=== PATIENT | male | born 1940 | race Caucasian/White ===

== ENCOUNTER 2016-03-23 07:56 | Observation (INO) | payer MEDICARE ==
[~2016-03-23] VITALS: Ht 179.1 cm; Wt 118.0 kg
[2016-03-23] VITALS (8 sets, daily range): BP systolic 130–151; BP diastolic 47–68; PULSE 65–81; RESP 10–20; O2SAT 95–99
[~2016-03-23 07:56] MED LIST: ACET-171 PO; ALBU8.5H2 INHALATION; AMLO5TAB2 PO; ASPI-973 PO; ATOR20TA65 PO; CARV6.252 PO; CLOP75TA3 PO; DOXA2TAB52 PO; FLUT16SP NS; FUR20 PO; HYDR-3939 PO; INSU100I13 SUBQ; INSU200I SQ; IPRA3AMP IH; ISOS30TA4 PO; LOSA50TA3 PO; Lactated Ringer's 1,000 ML IV ONE; OXYB5TAB PO
[2016-03-23] MEDS ORDERED: Lactated Ringer's 1,000 ML IV SCH (09:11)
[2016-03-23] MEDS ORDERED: Lactated Ringer's 500 ML IV PRN (09:11)
[2016-03-23] MEDS ORDERED: hydrALAZINE 20 mg/mL Inj IVPUSH PRN (09:15)
[2016-03-23] MEDS ORDERED: fentaNYL-PF 50 mCg/mL 2 mL Inj IVPUSH PRN (09:15)
[2016-03-23] MEDS ORDERED: MetoCLOpramide 5 mg/mL 2 mL Inj IVPUSH PRN (09:15)
[2016-03-23] MEDS ORDERED: EPHEDrine Sulfate 50 mg/mL Inj IVPUSH PRN (09:15)
[2016-03-23] MEDS ORDERED: Phenylephrine 10,000 mCg/mL Inj IVPUSH PRN (09:15)
[2016-03-23] MEDS ORDERED: Ondansetron 2 mg/mL 2 mL Inj IVPUSH PRN ×2 (09:15→14:45)
[2016-03-23] MEDS ORDERED: HYDROmorphone 1 mg/mL Inj IVPUSH PRN (09:15)
[2016-03-23] MEDS ORDERED: Atropine 0.4 mg/mL Inj IVPUSH PRN (09:15)
[2016-03-23] MEDS ORDERED: Labetalol 5 mg/mL 4 mL Inj IV PRN (09:15)
[2016-03-23] MEDS ORDERED: Glucagon 1 mg/mL Inj ONE ×2 (11:00→13:15)
[2016-03-23] MEDS ORDERED: Neostigmine 1 mg/mL 5 mL Inj ONE (11:00)
[2016-03-23] MEDS ORDERED: Phenylephrine/NS-PF 100 mCg/mL 5 mL Syringe IVPUSH ONE (11:00)
[2016-03-23] MEDS ORDERED: Ondansetron 2 mg/mL 2 mL Inj ONE (11:00)
[2016-03-23] MEDS ORDERED: Propofol 10,000 mCg/mL 20 mL Inj ONE (11:00)
[2016-03-23] MEDS ORDERED: EPHEDrine/NS 5 mg/mL 5 mL Syringe ONE (11:00)
[2016-03-23] MEDS ORDERED: Glycopyrrolate 0.2 mg/mL 5 mL Inj ONE (11:00)
[2016-03-23] MEDS ORDERED: Rocuronium 10 mg/mL 5 mL Inj ONE (11:00)
[2016-03-23] MEDS ORDERED: Succinylcholine Chloride 20 mg/mL 5 mL Inj ONE (11:00)
[2016-03-23] MEDS ORDERED: MetoCLOpramide 5 mg/mL 2 mL Inj ONE (11:00)
[2016-03-23] MEDS ORDERED: Insulin Human REGular-Omnicell 100 Unit/mL ONE (11:21)
[2016-03-23] MEDS ORDERED: fentaNYL-PF 50 mCg/mL 2 mL Inj ONE (13:15)
--- NOTE | 2016-03-23 14:19 | DRSVH ---
PROCEDURE: X-RAY E.R.C. BILIARY DUCTS ([id number]) INDICATIONS: STONE REMOVAL TECHNIQUE: Fluoroscopic spot films were acquired by the gastroenterology service during ERCP procedu re. COMPARISON: [facility], US, US ABDOMEN, 12/24/2015, 13:30. FINDINGS: Partial opacification of the extrahepatic bile duct which is prominent and there is a rough ly 1 cm rounded filling defect seen involving the distal common bile duct. Sweeping balloon catheter is noted. IMPRESSION: Prominence of the extra hepatic bile duct with intraluminal filling defect likely related to a retained stone or possible gas bubble. Correlate with real-time exam. Dictated by: Alex THAYER Interpreted: Ivanna Reddy MD on 03/23/2016 at 14:18 Transcribed by: CRISS on 03/23/2016 at 14:19 Approved by: Ivanna Reddy MD, PhD on 03/23/2016 at 16:30
[2016-03-23] MEDS ORDERED: Polyethylene Glycol (PEG) 17 Gm Powder PO PRN (14:45)
[2016-03-23] MEDS ORDERED: Alum-Mag Hydrox-Simeth 30 mL Suspension PO PRN (14:45)
--- NOTE | 2016-03-23 15:00 | NUR ---
To [facility] after ERCP Report received from charge nurse. ERCP procedure after stent removed BP 151/68, pulse 73. afebrile. alert and awake, watching TV. denies pain or discomfort. no nausea or vomiting. call light with in reach for safety.
[2016-03-23] MEDS ORDERED: Albuterol-Ipratropium 3 mL Inhalation Solution INHALATION PRN (15:10)
[2016-03-23 16:26] LABS: BASOPHILS % (AUTO) 0.2 % (0-3); EOSINOPHILS % (AUTO) 0.3 % (0-5); MONOCYTES % (AUTO) 4.8 % (4-12); Mean Corpuscular Hemoglobin 27.6 pg (27.0-35.0); Mean Corpuscular Volume 86.1 fL (81-100); NEUTROPHILS % (AUTO) 85.9 % (40-74); Platelet Count 217 bil/L (150-400)
--- NOTE | 2016-03-23 17:54 | PCM.HPANE ---
Patient Data Surgeon Admitting Provider: Attending Provider:Karri Mcgregor MD Primary Care Physician:Andrew Pope MD Other Provider:Shannon Sanchezingham Anesthesia Reason for Visit Cholelithiasis Ht/WT & BMI Body Mass Index Allergies Coded Allergies: lisinopril (Unverified Adverse Reaction, Severe, COUGH, 11/15/15) Past Anesthesia History Anesthesia History: Denies:: Abnormal Airway, Anesthesia Reactions, Difficult Intubation, Fam Anesthesia Reaction, Fam Malignant Hypertherm, Malignant Hyperthermia Diabetes History Hx Diabetes?: Yes Type of Diabetes: Type II Glycemic Control: Insulin Dependent Medications Blood Thinner: Aspirin, Plavix Active Scripts Amlodipine 5 Mg Tjnzhq69 Mg PO DAILY #30 TABLET Prov:Israel Valenzuela MD 12/26/15 Hydralazine 25 Mg Jjlckj51 Mg PO TID #30 TABLET Prov:Zachariah Streeter 11/24/15 Furosemide 20 Mg Tab20 Mg PO 0830,1630 #14 TAB Prov:Zachariah Streeter 11/24/15 Losartan Potassium (Cozaar)50 Mg Kpuukk93 Mg PO BID #14 TABLET Prov:Zachariah Streeter 11/24/15 Carvedilol 6.25 Mg Tablet6.25 Mg PO BID #60 TABLET Ref 0 Prov:Mike Lemon DO 11/17/15 Clopidogrel Bisulfate (Plavix)75 Mg Bqpklq48 Mg PO DAILY 30 Days Ref 3 Prov:Bar Galdamez MD 09/03/15 Reported Medications Isosorbide MN ER 30 Mg Tab.er.24h30 Mg PO DAILY 03/22/16 Fluticasone Propionate (Fluticasone Propionate Nasal)16 Gm [place].susp2 [place] NS DAILY #16 GM Ref 0 03/22/16 Albuterol HFA (Proair HFA)8.5 Gm Hfa.aer.ad2 Puffs INHALATION Q4H PRN For Shortness of Breath #1 INHALER 03/22/16 Insulin Lispro (Humalog Kwikpen)200 Unit/Ml (3 Ml) Insuln.pen1-8 Unit SQ TIDAC 141-199 - 1 unit 200-249 - 3 units 250-299 - 5 units 300-349 - 7 units >349 - 8 units 11/18/15 Acetaminophen 500 Mg Tablet1,000 Mg PO Q6H PRN For Pain 11/18/15 Aspirin 81 Mg Zbibbi85 Mg PO DAILY Ref 0 09/02/15 Oxybutynin Chloride ER 5 Mg Tab.er.245 Mg PO DAILY Ref 0 08/19/15 Ipratropium/Albuterol Sulfate (Iprat-Albut 0.5-3(2.5) mg/3 mL Inhalant Soln)3 Ml Ampul.neb3 Ml IH QID PRN For Wheezing Ref 0 08/19/15 Doxazosin (Cardura)2 Mg Tablet4 Mg PO DAILY Ref 0 03/17/15 Atorvastatin Calcium 20 Mg Yvpuid01 Mg PO HS #90 12/01/14 Insulin Glargine (Lantus U100 Solostar Insulin Pen)100 Unit/1 Ml Insuln.pen15 Unit SUBQ BIDAC before breakfast and before supper 09/08/14 History History of ENT Problems?: No HEENT History: Positive for:: Cataracts (right eye) Denies:: Abnormal Airway Difficult Intubation Dysphagia Hearing Problem Sinus Problem Hx of Heart Problems?: Yes Cardiovascular History: Positive for:: Cardiac Surgery (08/2014 HEART CATH X2 W/ STENTING,) Edema Heart Murmur Hypertension Thrombophlebitis (HX OF DVT in R thigh) Denies:: AICD Chest Pain Congestive Heart Failure (pt is unsure) Irregular Heartbeat Pacemaker Valvular Heart Disease Hx of Respiratory Problem?: No Respiratory History: Positive for:: COPD Dyspnea Hemoptysis (has happened in past with really severe cough) Use of C-PAP Machine (ALVARO+ SLEEP STUDY 03/2010 NON-COMPLIANT W/ CPAP) Denies:: Asthma Chest Surgery Emphysema Pneumonia Tuberculosis Hx Neurologic Problems?: Yes Neurological History: Denies:: Alzheimer's Disease CVA Dementia Dizziness Headaches Parkinson's Disease Seizures Hx of GI Problems?: No Gastrointestinal History: Denies:: Diverticulitis Gastroesphageal Reflux Gastrointestinal Bleeding Heartburn Hepatitis Hiatal Hernia Rectal Bleeding Hx of Problems?: Yes Genitourinary History: Positive for:: Kidney Stones Urinary Tract Infection Denies:: HX of Hemodialysis HX of Peritoneal Dialysis: No Male Hx: Positive for:: Prostate Problems (BPH) Denies:: Scrotal Mass Testicular Surgery Skin History: Positive for:: History Skin Disorders? (wound on LLE, pt does not know how it happened or how long ago it happened.) Denies:: Pressure Ulcers (LT FOOT/HEEL WOUND=CURRENT PROBLEM FOOT IN CAST ) Hx Musculoskeletal Problems?: Yes Musculoskeletal History: Denies:: Back Injury Joint Replacement Musculoskeletal Trauma Hx of Psycho/Social Problems?: Yes Psycho Social History: Positive for:: Anxiety Hx Depression Denies:: Bipolar Disorder Suicide Attempt Hx Surgeries?: Yes (on feet and gallbladder) Hx Any Other Health Problems?: Yes Other History: Positive for:: Hospitalization (NH, surgeries) Denies:: Cancer Endocrine Disease Thyroid Disease History Blood Transfusions: Denies:: Blood Transfuse Reaction Blood Transfusions Hx Diabetes: Yes Hx Alcohol Use: NoHx Substance Use: No Smoking Status: Former Smoker Have You Smoked inLast 12 mo: No ("quit 50 years ago") Stop/Bang Risk Assessment Category Category 1A: Patient has history of documented sleep apnea, and HAS NOT received any narcotic, sedative or anesthesia administration during this stay. Category 1B: Patient has history of documented sleep apnea, and HAS received any narcotic , sedative or anesthesia administration during this stay Category 2: Patient has SUSPECTED Obstructive Sleep Apnea, and HAS received any narcotic , sedative or anesthesia administration during this stay. Category 3: Patient has SUSPECTED Obstructive Sleep Apnea and HAS NOT received narcotic, sedative or anesthesia administration during this stay. Category 4: Outpatient in Procedural Areas with known sleep apnea or who screen positive for High Risk via the STOP/BANG questionnaire. Exam Exam General Appearance: Alert, Oriented X3, Cooperative, No Acute Distress HEENT/AIRWAY: MP 2 Lungs: Clear to Auscultation, Normal Air Movement Heart: Exam Unremarkable, Regular Rate/Rhythm, No Murmurs/Rubs/Gallops Plan Impression Patient chart reviewed, patient interviewed and anesthestic plan with risks, benefits, and alternatives discussed, and informed consent obtained. NPO Status: 12/24 3660 ASA Physical Status: ASA3 Severe Disease Anesthetic Support Modalities: Lithia Scope Anesthetic Plan: GA Bene/Risks/Altern/Consents: Yes HP Complete Prior to Induction: Yes Marlon Flanagan MD Mar 23, 2016 07:36
--- NOTE | 2016-03-23 17:54 | PCM.ANEP2 ---
Post Anesthesia Evaluation ASA/CMS Post Anesthesia VS in Patient's Normal Range?: Yes Resp Stable; Airway Patent?: Yes CV Function & Hydration Stable: Yes Mental Status Recovered?: Yes Pain control Satisfactory?: Yes N/V Control Satisfactory?: Yes Marlon Flanagan MD Mar 23, 2016 17:54
--- NOTE | 2016-03-23 17:54 | PCM.ANEP1 ---
Post Anesthesia Phase 1 PACU Phase 1 Assessment Vital Signs Vital Signs Date Time Temp Pulse Resp B/P Pulse Ox O2 Delivery O2 Flow Rate FiO2 03/23/16 14:56 36.4 73 14 151/68 03/23/16 12:10 68 13 135/47 95 Room Air 2 03/23/16 10:55 70 14 130/48 95 Nasal Cannula 2 03/23/16 10:50 70 12 140/50 95 Nasal Cannula 2 03/23/16 10:42 36.6 74 10 142/58 99 Simple Mask 10 Anesthetic Administered: GA Level of Alertness: Awake, talking ECHE[place]RIA's with Equal Strength: Yes Pain: No Nausea or Vomiting: No Oxygen Delivery: Room Air Lungs: Clear to Auscultation, Normal Air Movement Dermatome Level: Full Sensation Marlon Flanagan MD Mar 23, 2016 17:54
[2016-03-23] MEDS ORDERED: Glucose 40% Oral Gel 15 Gm Tube PO PRN (18:00)
--- NOTE | 2016-03-23 18:19 | NUR ---
Blood sugar Blood sugar before dinner 209. paged doctor and new orders for insulin SS.
[2016-03-23] MEDS: Albuterol 2.5 mg/3 mL Inhalation Solution NEB PRN (18:32)
--- NOTE | 2016-03-23 19:25 | NUR ---
CHELSEA wraps CHELSEA wraps on bilateral lower legs and per patient, " followed by wound doctor" last change on last Sunday per patient and it is changed weekly per patient.
[2016-03-23] MEDS: Insulin LISPRO 300 Unit/3 mL Inj SUBQ SCH (22:25)
[2016-03-23] MEDS: Heparin 5,000 Unit/mL Inj SUBQ SCH (22:35)
--- NOTE | 2016-03-23 22:35 | PCM.HPMED ---
Subjective Date of Service Mar 23, 2016 Primary Provider: Admitting Physician: Karri Mcgregor MD Primary Care Physician: Andrew Pope MD Attending Physician: Karri Mcgregor MD Admit Status: Direct Admit, 23-Hour Observation, Admit to Red Team Chief Complaint: Patient is status post ERCP with stone removal from the common bile duct History of Present Illness: Patient is a pleasant 75-year-old male history of COPD, diabetes, coronary disease, status post laparoscopic cholecystectomy that was performed on 09/02/2015, status post ERCP with choledocholithiasis and biliary stent placement and failed removal of a common bile duct stone on 09/02/2015. Patient was admitted on 12/25/2015 to [facility] for transaminitis. This transaminitis resolved relatively quickly and patient was discharged home to follow-up with gastroenterology. Patient was brought in for elective ERCP today and was found to have a common bile duct stone or stones which were removed(operative report not available) and patient was to be discharged home however he had no way to get home and lives alone. Therefore he was brought in under observation to the hospital service. -Check liver function tests in a.m. -Check CBC and magnesium in a.m. as well Review of Systems: General: Patient is in no apparent distress lying supine in bed. HEENT: Patient has no headache, patient has no diplopia, patient has no changes in vision. Patient has no problems with his ears, nose or throat. Patient has no known dental problems. Patient has no pharyngitis or history of thrush. Neck: Patient has no stiffness in the neck. Patient has no lymphadenopathy. Patient has no other problems with his neck. Pulmonary: Patient has no shortness of breath, no cough, no expectoration of sputum. Patient has no pleurisy. Patient has no chest pain. Patient has no history of asthma or COPD. Cardiovascular: Patient has no chest pain. Patient has no history of heart murmur. Patient has no palpitations. Patient has a history of coronary artery disease and non-ST elevated myocardial infarction Gastrointestinal: Patient has no history of hepatitis A, B or C. Patient has no history of peptic ulcer disease. Patient has no history of gastroesophageal reflux disease. Patient has no history of nausea, vomiting, or diarrhea. Patient has no history of hematemesis, hematochezia, or melena. Patient has no history of colitis. Renal: Patient has no history of kidney disease. No history of kidney stones. Genitourinary: Patient has no history of dysuria, frequency, or incontinence. Patient has no previous history of genitourinary problems. Musculoskeletal: Patient has no history of muscular skeletal problems. Neurologic: Patient has no history of stroke, no history of seizure, no history of TIA. Psychiatric: Patient has no history of psychiatric problems. The remainder of the entire review of systems was reviewed with patient and is as mentioned above otherwise negative. Allergies Coded Allergies: lisinopril (Unverified Adverse Reaction, Severe, COUGH, 11/15/15) Home Medications Amlodipine 5 Mg Rgkgik70 Mg PO DAILY #30 TABLET Prov:Israel Valenzuela MD 12/26/15 Hydralazine 25 Mg Mhghhw39 Mg PO TID #30 TABLET Prov:Zachariah Streeter 11/24/15 Furosemide 20 Mg Tab20 Mg PO 0830,1630 #14 TAB Prov:Zachariah Streeter 11/24/15 Losartan Potassium (Cozaar)50 Mg Hndimp80 Mg PO BID #14 TABLET Prov:Zachariah Streeter 11/24/15 Carvedilol 6.25 Mg Tablet6.25 Mg PO BID #60 TABLET Ref 0 Prov:Mike Lemon DO 11/17/15 Clopidogrel Bisulfate (Plavix)75 Mg Dbszrv05 Mg PO DAILY 30 Days Ref 3 Prov:Bar Galdamez MD 09/03/15 Reported Medications Isosorbide MN ER 30 Mg Tab.er.24h30 Mg PO DAILY 03/22/16 Fluticasone Propionate (Fluticasone Propionate Nasal)16 Gm [place].susp2 [place] NS DAILY #16 GM Ref 0 03/22/16 Albuterol HFA (Proair HFA)8.5 Gm Hfa.aer.ad2 Puffs INHALATION Q4H PRN For Shortness of Breath #1 INHALER 03/22/16 Insulin Lispro (Humalog Kwikpen)200 Unit/Ml (3 Ml) Insuln.pen1-8 Unit SQ TIDAC 141-199 - 1 unit 200-249 - 3 units 250-299 - 5 units 300-349 - 7 units >349 - 8 units 11/18/15 Acetaminophen 500 Mg Tablet1,000 Mg PO Q6H PRN For Pain 11/18/15 Aspirin 81 Mg Wgqrgs22 Mg PO DAILY Ref 0 09/02/15 Oxybutynin Chloride ER 5 Mg Tab.er.245 Mg PO DAILY Ref 0 08/19/15 Ipratropium/Albuterol Sulfate (Iprat-Albut 0.5-3(2.5) mg/3 mL Inhalant Soln)3 Ml Ampul.neb3 Ml IH QID PRN For Wheezing Ref 0 08/19/15 Doxazosin (Cardura)2 Mg Tablet4 Mg PO DAILY Ref 0 03/17/15 Atorvastatin Calcium 20 Mg Mdusxj57 Mg PO HS #90 12/01/14 Insulin Glargine (Lantus U100 Solostar Insulin Pen)100 Unit/1 Ml Insuln.pen15 Unit SUBQ BIDAC before breakfast and before supper PMH NSTEMI with known Coronary disease status post placement of 2 coronary artery stents August 2014 history stents replaced in the left thalamus or posterior circumflex and the proximal RCA. 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 h/o MRSA septicemia (from foot) Obstructive sleep apnea History of lumbar stenosis Hypertension Diabetes mellitus Possible Bladder tumor with elevated PSA(suppose to be scheduled for Cystoscopy and transurethral resection of bladder tumor 11/17 but patient cancelled to ask for second opinion) patient obtain a second opinion from a Dr. Lin at [facility] who thought better to watch these bladder process rather than to surgery. Patient is to follow-up with [facility] for further recommendations. Hyperlipemia Vitamin D deficiency Cognitive impairment Surgical History Left foot partial amputation 2006 Cardiac cath August 2014 (patient has 2 stents in the left dominant circumflex, and a proximal RCA stent) Family History Patient's father of a myocardial infarction at the age of 68. Patient's mother of breast cancer at the age of 65 Patient's brother of prostate cancer Patient sister of a stroke. The patient's uncle had colon cancer There is no other family history of colon cancer There is no family history of inflammatory bowel disease or celiac disease. 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 He then worked to work for the [employer] company. 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 Patient was transferred to [facility] shortly after working for the [employer] company in [place]. The patient has never been and he has no children. He has no girlfriend and he lives by himself at the [facility]. He occasionally plays golf. Exam Vital Signs Vital Sign - Last Date Time Temp Pulse Resp B/P Pulse Ox O2 Delivery O2 Flow Rate FiO2 03/23/16 18:37 65 18 98 Nasal Cannula 2.50 03/23/16 14:56 36.4 151/68 Exam General: Patient is in no apparent distress lying supine in bed. HEENT: Head is atraumatic and normocephalic. There is normal male pattern baldness. Eyes: Pupils are equally round and reactive to light and accommodation. Extraocular muscles are intact. Sclera are white, anicteric. Subconjunctival mucosa is pink. Ears and nose are unremarkable. Oropharynx: There is no mucosal lesions, there is no thrush, there is no pharyngitis. Neck: Is supple, there are no nodes, or masses or tenderness. Chest: Is clear to auscultation and percussion. There are no rales, rhonchi, wheezes or rubs. Heart: Rate, rhythm is regular. There is no murmur, rub or gallop. Abdomen: Good bowel sounds are present. Abdomen is soft, nontender, no organomegaly or masses were appreciated. There is some tympany to percussion. Extremities: Are symmetrical and well perfused. There is no edema, there is no cellulitis, no rash. Neurologic: There are no focal neurological deficits. Cranial nerves II through XII are intact. There are no sensory or motor deficits. Psychiatric: Patients mood is calm and shows no sign of agitation. Genital: Deferred Rectal: Deferred Lab and Diagnostics Result Diagram: 03/23/16 1535 03/23/16 1535 X-Rays, CTs and MRIs PROCEDURE: X-RAY E.R.C. BILIARY DUCTS ([id number]) INDICATIONS: STONE REMOVAL TECHNIQUE: Fluoroscopic spot films were acquired by the gastroenterology service during ERCP procedure. COMPARISON: [facility], US, US ABDOMEN, 12/24/2015, 13:30. FINDINGS: Partial opacification of the extrahepatic bile duct which is prominent and there is a roughly 1 cm rounded filling defect seen involving the distal common bile duct. Sweeping balloon catheter is noted. IMPRESSION: Prominence of the extra hepatic bile duct with intraluminal filling defect likely related to a retained stone or possible gas bubble. Correlate with real-time exam. Dictated by: Alex Peres RRA Interpreted: Ivanna Reddy MD on 03/23/2016 at 14:18 Transcribed by: CRISS on 03/23/2016 at 14:19 Approved by: Ivanna Reddy MD, PhD on 03/23/2016 at 16:30 Cardiac Echo Impressions Echocardiogram Report Name: KALEY JEAN KStudy Date: 11/16/2015 H eight: 72 in Hospital Exam Location: [facility] eight: 261 lb Gender: Male B SA: 2.4 m2 : 1940 Age: 74 yrs B P: 158/81 mmHg Reason For Study: NSTEMI Ordering Physician: [facility]PITAL[facility] Performed By: Melissa Martinez Referring Physician: DR. POPE, DR. Delaney GTZ Interpretation Summary Sinus bradycardia; HR is 55-60 bpm. Wide QRS complexes. Normal LV size; normal wall thickness; there is basal inferior, mid inferior, mid inferolateral and basal inferolateral hypokinesis. EF is 45-50%. state II diastolic dysfunction. Aortic valve leaflets are moderately calcified and thickened. There is aortic sclerosis without stenosis. Compared to prior study 09/09/2015 LV is less dynamic. EF is down from 55-60% to 45-50%. Focal WMA's in PDA distribution are more pronounced. Assessment & Plan Patient is a pleasant 75-year-old male history of COPD, diabetes, coronary disease, status post laparoscopic cholecystectomy that was performed on 09/02/2015, status post ERCP with choledocholithiasis and biliary stent placement and failed removal of a common bile duct stone on 09/02/2015. Patient was admitted on 12/25/2015 to [facility] for transaminitis. This transaminitis resolved relatively quickly and patient was discharged home to follow-up with gastroenterology. Patient was brought in for elective ERCP today and was found to have a common bile duct stone or stones which were removed(operative report not available) and patient was to be discharged home however he had no way to get home and lives alone. Therefore he was brought in under observation to the hospital service. Choledocholithiasis -Status post ERCP and common bile duct stone removal today -Check CBC CMP and magnesium level in a.m. -Monitor closely. Coronary Artery Disease s/p stents - History of drug eluting stents placement to RCA and circumflex (x2 TIA) in 2014, currently off the Plavix - Coreg 6.25 mg bid, Isosorbide 30 mg daily and Atorvastatin Hypertension -We will monitor postprocedure - We will continue Losartan, Amlodipine and Coreg Hyperlipidemia - We will continue continue Atorvastatin 20 mg HS Diabetes type 2 with associated neuropathy, diabetic foot ulcer and nephropathy - Hold outpatient Lantus tonight due to poor by mouth intake - We will implement sliding scale insulin coverage with low correction algorithm with Lispro - Diabetic diet Obstructive sleep apnea - Patient does not have his CPAP machine - Therefore will place on 2 L of O2 per nasal cannula while sleeping with O2 sat monitoring. Disposition. - Patient lives alone without any caregivers. - Plan for discharge in a.m. - Dr. Mcneal will follow in a.m. Pain Evaluation: Adequate Pain Control GI Prophylaxis: Proton Pump Inhibitor VTE Prophylaxis: Sub-Q Heparin (Unfractionated) VTE Mechanical Devices: Intermittant Pneumatic CD Resuscitation Status: CPR: Attempt Resuscitation Celestino Velasquez MD Mar 23, 2016 22:35
[2016-03-24] MEDS: Heparin 5,000 Unit/mL Inj SUBQ SCH ×2 (00:53→08:23)
[2016-03-24] MEDS: Insulin LISPRO 300 Unit/3 mL Inj SUBQ SCH ×3 (01:01→12:00)
[2016-03-24 01:07] VITALS: BP 147/69; PULSE 63; RESP 18; O2SAT 99
[2016-03-24 03:23] VITALS: PULSE 66; RESP 18; O2SAT 99
[2016-03-24] MEDS: Albuterol 2.5 mg/3 mL Inhalation Solution NEB PRN (03:23)
--- NOTE | 2016-03-24 03:53 | NUR ---
Blood Glucose/Insulin Pt HS BG 207. Informed pt of sliding scale coverage of 1 unit. Pt stated, "1 UNIT, THAT WILL DO NOTHING!" Discussed with pt what he would do at home pt stated that he would most likely take 4 units and asked if he would like 4 units. Pt appearing very angry and didn't understand why the MD would only order 1 unit. Explained to pt the algorithm and that it was just a guideline to help with insulin administration. Asked pt again if he would like 1 unit or 4 units. Pt stated "I will take the 1 unit and want you to come check my blood sugar in 2 hours!" Administered 1 unit and rechecked BG @ 0100 with a result of 163. Pt requesting 3 more units of insulin. Administered 3 units per pt request and rechecked 2.5 hours later and BG 123.
[2016-03-24 07:02] LABS: BASOPHILS % (AUTO) 0.2 % (0-3); EOSINOPHILS % (AUTO) 2.2 % (0-5); MONOCYTES % (AUTO) 5.8 % (4-12); Mean Corpuscular Hemoglobin 27.1 pg (27.0-35.0); Mean Corpuscular Volume 86.9 fL (81-100); NEUTROPHILS % (AUTO) 75.8 % (40-74); Platelet Count 201 bil/L (150-400)
[2016-03-24] MEDS ORDERED: Pantoprazole 40 mg ER24 Tablet PO SCH (07:30)
--- NOTE | 2016-03-24 07:38 | ENDO ---
[address] [address] ENDOSCOPY PROCEDURE PATIENT: KALEY JEAN : 1940 MR#: [id number] ADMIT: 03/23/2016 JOB ID: [id number] DATE: 03/23/2016 PROCEDURE: Endoscopic retrograde cholangiopancreatography. INDICATION: Patient with choledocholithiasis. The patient had an ERCP last year for symptomatic choledocholithiasis. At that point, sphincterotomy was not performed secondary to patient being on blood thinners and, therefore, a biliary stent was placed. A subsequent attempt to remove the stone resulted in bleeding at the papilla and there were questions of whether the patient had actually stopped his blood thinning medications. The patient was now brought back for ERCP with sphincterotomy, stone removal and stent removal. Please see Dr. Flanagan's anesthesia report for details regarding ASA classification, Mallampati score and details regarding general anesthesia. INSTRUMENT USED: TJF Q180V. PROCEDURE DETAILS: After informed consent was obtained, the patient was brought into the GI suite, where he was placed under general anesthesia and then placed in the standard ERCP position with a bite block. Initial train director film demonstrated a biliary stent in the right upper quadrant in the expected position. The standard ERCP scope was inserted through the bite block and advanced to the second portion of the duodenum. In the second portion, I did identify the ampulla along with the previously placed biliary stent.. There was some mild exudate around the stent. Using a combination of rat-tooth forceps and a standard snare, we removed the previously placed biliary stent. Next, using a [employer] [employer], using wire guidance, I selectively cannulated the biliary tree. Initial cholangiogram demonstrated a dilated common bile duct measuring approximately 12 mm. Filling of the intrahepatic ducts was noted which appeared unremarkable. There was an approximately 6-7 mm filling defect noted in the distal CBD. Next, a moderate-sized sphincterotomy was performed. Following this, using an 9-12 mm balloon, balloon sweep times three was performed which extruded a pigmented stone. Two more sweeps were performed. Final occlusion cholangiogram demonstrated no further filling defects. The pancreatic duct was not cannulated or injected with contrast as this was not the duct of interest. IMPRESSION: Choledocholithiasis, status post endoscopic retrograde cholangiopancreatography with biliary stent removal, sphincterotomy and balloon sweep. RECOMMENDATIONS: 1. Avoid nonsteroidal anti-inflammatory drugs and anticoagulants for 72 hours. 2. Followup in GI clinic as needed. COMPLICATIONS: None. ESTIMATED BLOOD LOSS: 0. MTDD
--- NOTE | 2016-03-24 07:46 | NUR ---
Diet Contacted Dr. Mcneal with the following cook page: Patient's diet is currently clear liquids, patient is requesting solid foods this morning. Please advise. Thank you. Halle KAUR
[2016-03-24 08:00] VITALS: BP 134/54; PULSE 71; RESP 16; O2SAT 95
[2016-03-24] MEDS ORDERED: Tolterodine ER 2 mg ER24 Capsule PO SCH (08:30)
[2016-03-24] MEDS ORDERED: Isosorbide Mononitrate 30 mg ER24 Tablet PO SCH (08:30)
[2016-03-24] MEDS ORDERED: Fluticasone 0.05% 15 Spray/2 Gm 16 Gm Nasal Spray NASAL SCH (08:30)
--- NOTE | 2016-03-24 10:47 | NUR ---
Morning Rounds Staffed patient's case with Dr. Mcneal, social work and case management. Dr. Mcneal stated she still needs to assess the patient, but I did make Dr. Mcneal aware that patient does want to be discharged.
--- NOTE | 2016-03-24 11:44 | NUR ---
Blood Sugar/Insulin When I went to check patient's blood sugar, he stated he had already taken it and given himself insulin. He stated he took 6 units of Humalog and 15 units of Lantus and his blood sugar was 247. I checked his blood sugar again at this time and it was 225, he stated he took his own blood sugar/insulin about 30 minutes prior to my checking. I had supervisor propellant charge loading enter the room with me and verify the insulin he had given to himself, they were pen injectors. We explained to him the need for taking only medications prescribed to him while in the hospital and not taking any home medications. He agreed, but stated he was going home today.
--- NOTE | 2016-03-24 12:35 | PCM.DIMED ---
Discharge Instructions Date of Service Mar 24, 2016 Dates of Hospitalization Mar 23, 2016 at 13:14 Diet Low fat, Low Sodium Activity No restrictions Call your provider Fever or Chills, Other (abdominal pain) Patient Instructions Follow-up with PCP in: Other (as previously planned) Seema Mcneal MD Mar 24, 2016 12:35
--- NOTE | 2016-03-24 12:39 | PCM.DIMED ---
Discharge Instructions Date of Service Mar 24, 2016 Dates of Hospitalization Mar 23, 2016 at 13:14 Diet Low fat, Low Sodium Activity No restrictions Call your provider Fever or Chills, Other (abdominal pain) Patient Instructions Follow-up with PCP in: Other (as previously planned) Additional Information Don't take aspirin or Plavix today or tomorrow. Seema Mcneal MD Mar 24, 2016 12:39
--- NOTE | 2016-03-24 12:42 | PCM.DC.MED ---
Discharge Summary Date of Service Mar 24, 2016 Dates of Hospitalization Date of Hospital Admission Mar 23, 2016 at 13:14 Date of Discharge: Mar 24, 2016 Providers: Admitting Physician: Karri Mcgregor MD Primary Care Physician: Andrew Pope MD Attending Physician: Karri Mcgregor MD Procedures XRay, CTs & MRIs PROCEDURE: X-RAY E.R.C. BILIARY DUCTS ([id number]) INDICATIONS: STONE REMOVAL TECHNIQUE: Fluoroscopic spot films were acquired by the gastroenterology service during ERCP procedure. COMPARISON: [facility], US, US ABDOMEN, 12/24/2015, 13:30. FINDINGS: Partial opacification of the extrahepatic bile duct which is prominent and there is a roughly 1 cm rounded filling defect seen involving the distal common bile duct. Sweeping balloon catheter is noted. IMPRESSION: Prominence of the extra hepatic bile duct with intraluminal filling defect likely related to a retained stone or possible gas bubble. Correlate with real-time exam. Dictated by: Alex Peres RRA Interpreted: Ivanna Reddy MD on 03/23/2016 at 14:18 Transcribed by: CRISS on 03/23/2016 at 14:19 Approved by: Ivanna Reddy MD, PhD on 03/23/2016 at 16:30 Cardiac Echo Impression Echocardiogram Report Name: KALEY JEAN KStudy Date: 11/16/2015 H eight: 72 in Hospital Exam Location: [facility] eight: 261 lb Gender: Male B SA: 2.4 m2 : 1940 Age: 74 yrs B P: 158/81 mmHg Reason For Study: NSTEMI Ordering Physician: [facility] Performed By: Melissa Martinez Referring Physician: DR. POPE, DR. Delaney GTZ Interpretation Summary Sinus bradycardia; HR is 55-60 bpm. Wide QRS complexes. Normal LV size; normal wall thickness; there is basal inferior, mid inferior, mid inferolateral and basal inferolateral hypokinesis. EF is 45-50%. state II diastolic dysfunction. Aortic valve leaflets are moderately calcified and thickened. There is aortic sclerosis without stenosis. Compared to prior study 09/09/2015 LV is less dynamic. EF is down from 55-60% to 45-50%. Focal WMA's in PDA distribution are more pronounced. Brief History Patient is a pleasant 75-year-old male history of COPD, diabetes, coronary disease, status post laparoscopic cholecystectomy that was performed on 09/02/2015, status post ERCP with choledocholithiasis and biliary stent placement and failed removal of a common bile duct stone on 09/02/2015. Patient was admitted on 12/25/2015 to [facility] for transaminitis. This transaminitis resolved relatively quickly and patient was discharged home to follow-up with gastroenterology. Patient was brought in for elective ERCP today and was found to have a common bile duct stone or stones which were removed(operative report not available) and patient was to be discharged home however he had no way to get home and lives alone. Therefore he was brought in under observation to the hospital service. -Check liver function tests in a.m. -Check CBC and magnesium in a.m. as well Hospital Course Patient is a pleasant 75-year-old male history of COPD, diabetes, coronary disease, status post laparoscopic cholecystectomy that was performed on 09/02/2015, status post ERCP with choledocholithiasis and biliary stent placement and failed removal of a common bile duct stone on 09/02/2015. Patient was admitted on 12/25/2015 to [facility] for transaminitis. This transaminitis resolved relatively quickly and patient was discharged home to follow-up with gastroenterology. Patient was brought in for elective ERCP today and was found to have a common bile duct stone or stones which were removed(operative report not available) and patient was to be discharged home however he had no way to get home and lives alone. Therefore he was brought in under observation to the hospital service. Choledocholithiasis -Status post ERCP and common bile duct stone removal day of admission -No complications noted, ready for discharge, no aspirin or plavix today or tomorrow Coronary Artery Disease s/p stents - History of drug eluting stents placement to RCA and circumflex (x2 TIA) in 2014, currently off the Plavix - Coreg 6.25 mg bid, Isosorbide 30 mg daily and Atorvastatin Hypertension -monitored postprocedure - Losartan, Amlodipine and Coreg continued Hyperlipidemia - Atorvastatin 20 mg HS continued Diabetes type 2 with associated neuropathy, diabetic foot ulcer and nephropathy - Held outpatient Lantus initially due to poor by mouth intake - implemented sliding scale insulin coverage with low correction algorithm with Lispro - Diabetic diet Obstructive sleep apnea - Patient does not have his CPAP machine - Therefore will place on 2 L of O2 per nasal cannula while sleeping with O2 sat monitoring. Disposition. - Home today Exam Vital Signs (Last) Date Time Temp Pulse Resp B/P Pulse Ox O2 Delivery O2 Flow Rate FiO2 03/24/16 08:20 Supplement Oxygen 03/24/16 08:00 37.0 71 16 134/54 95 03/24/16 03:23 2.50 Exam Awake, alert, no pain, had large breakfast without any pain or problem Heart: Reg Lungs: Clear Abd: soft, NT, normal BT Test 03/23/16 15:35 03/24/16 06:53 Hemoglobin A1c 7.0% (4.8-5.6) White Blood Count 5.0th/mm3 (3.8-10.1) Red Blood Count 3.43mil/mm3 (4.40-5.80) Hemoglobin 9.3g/dL (13.8-17.2) Hematocrit 29.8% (41.0-50.0) Mean Corpuscular Volume 86.9fL (81-100) Mean Corpuscular Hemoglobin 27.1pg (27.0-35.0) Mean Corpuscular Hemoglobin Concent 31.2% (32.0-37.0) Red Cell Distribution Width 15.2% (12.3-15.4) Platelet Count 201bil/L (150-400) Neutrophils (%) (Auto) 75.8% (40-74) Lymphocytes (%) (Auto) 15.8% (14-46) Monocytes (%) (Auto) 5.8% (4-12) Eosinophils (%) (Auto) 2.2% (0-5) Basophils (%) (Auto) 0.2% (0-3) Sodium Level 140mEq/L (134-144) Potassium Level 4.6mEq/L (3.5-5.2) Chloride Level 103mEq/L (97-108) Carbon Dioxide Level 24mmol/L (18-29) Blood Urea Nitrogen 38mg/dL (8-27) Creatinine 1.71mg/dL (0.76-1.27) Estimat Glomerular Filtration Rate 42mL/min (>59) Glucose Level 150mg/dL (60-99) Calcium Level 8.1mg/dL (8.5-10.1) Magnesium Level 2.0mg/dL (1.6-2.6) Total Bilirubin 0.5mg/dL (0.0-1.2) Aspartate Amino Transf (AST/SGOT) 31U/L (0-50) Alanine Aminotransferase (ALT/SGPT) 32U/L (0-44) Alkaline Phosphatase 93U/L (25-160) Total Protein 5.2g/dL (6.4-8.4) Albumin 2.9g/dL (3.4-5.0) Discharge Medications Discharge Medications Amlodipine (Amlodipine) 5 Mg Tablet 10 MG PO DAILY Prescribed by: KARLA VILLARREAL MD Aspirin (Aspirin) 81 Mg Tablet 81 MG PO DAILY (Reported) Atorvastatin Calcium (Atorvastatin Calcium) 20 Mg Tablet 40 MG PO HS (Reported) Carvedilol (Carvedilol) 6.25 Mg Tablet 6.25 MG PO BID Prescribed by: MEGAN BATES DO Clopidogrel Bisulfate (Plavix) 75 Mg Tablet 75 MG PO DAILY Prescribed by: CHRIS LESLIE MD Doxazosin (Cardura) 2 Mg Tablet 4 MG PO DAILY (Reported) Fluticasone Propionate (Fluticasone Propionate Nasal) 16 Gm [place].susp 2 SPRAY NS DAILY (Reported) Furosemide (Furosemide) 20 Mg Tab 20 MG PO 0830,1630 Prescribed by: ALEX MILAN DO Hydralazine (Hydralazine) 25 Mg Tablet 50 MG PO TID Prescribed by: ALEX MILAN DO Insulin Glargine (Lantus U100 Solostar Insulin Pen) 100 Unit/1 Ml Insuln.pen 15 UNIT SUBQ BIDAC (Reported) before breakfast and before supper Insulin Lispro (Humalog Kwikpen) 200 Unit/Ml (3 Ml) Insuln.pen 1-8 UNIT SQ TIDAC (Reported) 141-199 - 1 unit 200-249 - 3 units 250-299 - 5 units 300-349 - 7 units >349 - 8 units Isosorbide MN ER (Isosorbide MN ER) 30 Mg Tab.er.24h 30 MG PO DAILY (Reported) Losartan Potassium (Cozaar) 50 Mg Tablet 50 MG PO BID Prescribed by: ALEX MILAN DO Oxybutynin Chloride ER (Oxybutynin Chloride ER) 5 Mg Tab.er.24 5 MG PO DAILY ( Reported) As needed Acetaminophen (Acetaminophen) 500 Mg Tablet 1,000 MG PO Q6H PRN PRN For Pain ( Reported) Albuterol HFA (Proair HFA) 8.5 Gm Hfa.aer.ad 2 PUFFS INHALATION Q4H PRN PRN For Shortness of Breath (Reported) Ipratropium/Albuterol Sulfate (Iprat-Albut 0.5-3(2.5) mg/3 mL Inhalant Soln) 3 Ml Ampul.neb 3 ML IH QID PRN PRN For Wheezing (Reported) Followup Plan Discharge Diet: Low fat, Low Sodium Discharge Activity: No restrictions Follow-up with PCP in: Other (as previously planned) Seema Mcneal MD Mar 24, 2016 12:42 Seema Mcneal MD Mar 24, 2016 12:42
--- NOTE | 2016-03-24 12:52 | NUR ---
Discharge Note Patient given all discharge information and instructions at this, he had no questions. Removed patient's IV intact at this time. Patient transported via wheelchair to private vehicle by SECONDARY SCHOOL TEACHER LIBRARIAN.
--- NOTE | 2016-03-24 16:45 | NUR ---
Social Work: Initial Assessment attempted Data: Pt is a 75 y/o male admitted for cholelithiasis. Pt's PCP is Dr Pope, pt's insurance is [facility] [employer]. TOPOGRAPHIC COMPUTATOR attempted assessment with pt in early afternoon, but pt has already discharged before 1PM. TOPOGRAPHIC COMPUTATOR called pt's phone number listed in EMR to attempt to complete assessment over the phone, no answer, and no voice mail set up. TOPOGRAPHIC COMPUTATOR attempted to call pt's NOK, also no answer and no voice mail set up. MICHAELA Castro
== END 2016-03-24 12:50 | disposition home or self-care (01) ==
LOC: END 07:56 → INTOOBSV 13:14 → MOC 13:14
PROVIDERS: ADMIT Internal Medicine Gastroenterology; ATTEND Internal Medicine Gastroenterology
DX: K80.50 Calculus of bile duct without cholangitis or cholecystitis without obstruction (principal); I25.10 Atherosclerotic heart disease of native coronary artery without angina pectoris; E11.29 Type 2 diabetes mellitus with other diabetic kidney complication; E11.42 Type 2 diabetes mellitus with diabetic polyneuropathy; E78.5 Hyperlipidemia, unspecified; I10 Essential (primary) hypertension; G47.33 Obstructive sleep apnea (adult) (pediatric); J44.9 Chronic obstructive pulmonary disease, unspecified; Z87.442 Personal history of urinary calculi; F32.9 Major depressive disorder, single episode, unspecified; F41.9 Anxiety disorder, unspecified; Z95.5 Presence of coronary angioplasty implant and graft; Z79.02 Long term (current) use of antithrombotics/antiplatelets; Z87.891 Personal history of nicotine dependence; Z79.4 Long term (current) use of insulin; Z79.82 Long term (current) use of aspirin
CPT/HCPCS: 36415; 43275; 74328; 80053; 83036; 83735; 85025; 94664; G0378; G0379; J0330; J1610; J1644; J1815; J2370; J2405; J2710; J2765; J3010; J7120; J7613; Q9967